=== PATIENT | male | born 1945 | race African-American/Black ===

== ENCOUNTER 2018-06-11 07:28 | Outpatient (CLI) | payer MEDICARE, MEDICAID ==
[~2018-06-11] VITALS: Ht 188 cm; Wt 121.8 kg
--- NOTE | ~2018-06-11 | HEMODYNAMI ---
PATIENT:JOEL SORTO JR MEDICAL RECORD: [id number] : 45 [id number] ADMISSION DATE: 06/11/18 Generatedon:06/11/201811:22 Patient name: JOEL SORTO Patient #: [id number] SSN: : 1945 Date of study: 06/11/2018 Page: Of Hemodynamic Procedure Report Patient Data Patient Demographics Procedure consent was obtained First Name: JOEL Gender: Male Last Name: NOREEN Suffix: Patient #: [id number] : 1945 Age: 73 year(s) Accession #: Race: Black [id number] Additional ID: [id number] Contact details [address]: [address] [place] [address] State: [place] City: [place] Zip code: [address] Past Medical History Allergies: No known allergies Admission Admission Data Admission Date: 06/11/2018 Admission Time: 7:28 Procedure Procedure Types Cath Procedure Peripheral Cath Diagnostic Procedure Venography Procedure Description Procedure Date Procedure Date: 06/11/2018 Procedure Start Time: 10:15 Procedure Staff Name Function Joaquin Kathleen MD Performing Physician Jonny Reyes RT Monitor Merced Averyub Eri Cabrera RN Nurse Procedure Data Cath Procedure Fluoroscopy Diagnostic fluoroscopy Total fluoroscopy Time: 0 time: 0 min min Diagnostic fluoroscopy Total fluoroscopy dose: 287 dose: 287 mGy mGy Contrast Material Contrast Material Type Amount (ml) Isovue 300 65 Procedure Medications Medication Administration Route Dosage Heparin Flush Bag added to field 3 bags (1000units/500ml NS) Lidocaine 1% added to field 20 Versed I.V. 1 mg Fentanyl I.V. 50 mcg Versed I.V. 1 mg Fentanyl I.V. 50 mcg Heparin Bolus I.V. 5000 units Hemodynamics Rest Heart Rate: 77 (bpm) Snapshots Pre Cath Intra NCS Post Cath Vital Signs Time Heart Resp SPO2 etCO2 NIBP (mmHg) Rhythm Pain Sedation Rate (ipm) (%) (mmHg) Status Level (bpm) 9:35:30 77 13 95 37.2 168/92(116) NSR 0 (11) 10(A) , No pain 9:39:56 76 14 96 29 153/80(124) NSR 0 (11) 10(A) , No pain 9:44:18 71 16 94 35.7 143/85(120) NSR 0 (11) 10(A) , No pain 9:49:17 73 20 96 37.2 Measuring NSR 0 (11) 10(A) , No pain 9:49:40 76 18 94 28.3 159/81(104) NSR 0 (11) 10(A) , No pain 9:54:00 71 14 100 33.5 151/81(127) NSR 0 (11) 10(A) , No pain 9:58:20 76 18 98 30 152/86(129) NSR 0 (11) 9(A) , No pain 10:02:40 75 21 97 29.8 159/84(139) NSR 0 (11) 9(A) , No pain 10:07:02 75 15 98 27 161/86(141) NSR 0 (11) 9(A) , No pain 10:11:24 76 16 98 28 145/89(127) NSR 0 (11) 9(A) , No pain 10:15:42 75 14 100 31.3 142/84(120) NSR 0 (11) 8(A) , No pain 10:19:58 80 10 100 32 141/83(127) NSR 0 (11) 8(A) , No pain 10:24:16 75 10 99 23.1 136/77(115) NSR 0 (11) 8(A) , No pain 10:28:33 75 9 99 25.3 126/73(109) NSR 0 (11) 8(A) , No pain 10:32:44 77 14 11.1 127/80(108) NSR 0 (11) 8(A) , No pain 10:37:00 70 16 100 35 121/65(93) NSR 0 (11) 8(A) , No pain 10:41:10 79 15 100 31.3 131/81(112) NSR 0 (11) 8(A) , No pain 10:45:20 78 14 100 30 121/80(105) NSR 0 (11) 8(A) , No pain 10:49:34 74 20 100 30.6 123/68(97) NSR 0 (11) 8(A) , No pain 10:53:42 76 17 100 31.3 128/86(113) NSR 0 (11) 8(A) , No pain 10:57:58 68 17 100 32.1 134/64(88) NSR 0 (11) 8(A) , No pain 11:02:10 74 4 100 35 123/79(103) NSR 0 (11) 8(A) , No pain 11:06:22 74 16 100 32.8 135/75(116) NSR 0 (11) 8(A) , No pain 11:10:36 74 19 100 32.8 136/81(125) NSR 0 (11) 8(A) , No pain 11:14:52 78 16 100 0 129/80(111) NSR 0 (11) 8(A) , No pain 11:19:02 76 15 100 2.9 144/87(123) NSR 0 (11) 8(A) , No pain Medications Time Medication Route Dose Verified Delivered Reason Notes Effe ctiveness by by 10:05:19 Heparin Flush added 3 Joaquin Nuñez used for Bag to bags Frannie Kathleen MD procedure (1000units/500ml field IGLESIAS NS) 10:05:32 Lidocaine 1% added 20ml Joaquin Nuñez for local to vial Frannie Kathleen MD anesthetic field 10:15:07 Versed I.V. 1 mg Joaquin Hwang for Rick Kathleen RN sedation 10:15:21 Fentanyl I.V. 50 Joaquin Hwang for mcg Rick Kathleen RN sedation 10:34:11 Versed I.V. 1 mg Joaquin Hwang for Rick Kathleen RN sedation 10:34:21 Fentanyl I.V. 50 Joaquin Hwang for mcg Rick Kathleen RN sedation 10:35:44 Heparin Bolus I.V. 5000 Joaquin Hwang Per units Rick Kathleen RN physician Procedure Log Time Note 9:15:53 Jonny Reyes RT (R) (CV) sent for patient. Start room use. 9:16:02 Time tracking: Regular hours (M-F 7:00 - 5:00) 9:16:08 Plan of Care:Hemodynamics will remain stable., Cardiac rhythm will remain stable., Comfort level will be maintained., Respiratory function will remain adequate., Patient/ family verbilizes understanding of procedure., Procedure tolerated without complication., Recovers from procedure without complications.. 9:16:23 Patient received from Outpatients to IR Alert and oriented. Tansferred to table in Supine position. 9:16:25 Correct patient and procedure confirmed by team. 9:16:26 Signed procedure consent form obtained from patient. 9:16:27 ECG and BP/O2 sat monitors applied to patient. 9:16:29 Full Disclosure recording started 9:16:30 - 9:16:36 H&P Date Dictated: 06/11/2018 H&P Addendum completed by physician on day of procedure. (MUST COMPLETE FOR ALL OUTPATIENTS). 9:16:36 Pre-procedure instructions explained to patient. 9:16:37 Pre-op teaching completed and patient verbalized understanding. 9:16:38 Family in waiting room. 9:16:41 Patient NPO since Midnight. 9:16:53 Patient allergic to No known allergies 9:16:56 Is the patient allergic to Iodine/contrast media? No. 9:16:58 Is patient on blood thinner?No 9:16:59 Patient diabetic? Yes. 9:17:00 If diabetic: On Metformin? No 9:17:01 - 9:17:02 ----Pre-sedation anethsthesia assessment.---- 9:17:05 Use device set IR Diagnostic 9:17:07 Sterile Angiographic Pack opened to sterile field. 9:17:08 Bag Decanter () opened to sterile field. 9:17:10 Tegaderm 4 x 4 (1626W) opened to sterile field. 9:17:21 Previous problem with sedation/anesthesia? N/A ? 9:17:22 Snore? Yes 9:17:24 Sleep apnea? No 9:17:26 Deviated septum? No 9:17:29 Opens mouth fully? Yes 9:17:30 Sticks out tongue? Yes 9:17:32 Airway obstruction? No ? 9:17:37 Dentures? No ? 9:34:15 Vital chart was started 9:34:16 Baseline sample Acquired. 9:38:24 Baseline sample Acquired. 9:45:45 IV patent on arrival in left forearm with 0.9% NaCl at [facility]. 9:45:46 Sharps counted by scrub and verified by R.N. 9:45:47 Alarms reviewed by R. N. 9:45:53 Right Arm area was prepped with chlora-prep and draped in sterile fashion 9:45:57 Right groin area was prepped with chlora-prep and draped in sterile fashion 10:05:19 Heparin Flush Bag (1000units/500ml NS) 3 bags added to field was administered by Joaquin Kathleen MD; used for procedure; 10:05:32 Lidocaine 1% 20ml vial added to field was administered by Joaquin Kathleen MD; for local anesthetic; 10:12:31 Physician arrived 10:12:32 --------ALL STOP TIME OUT------ 10:12:32 Final Timeout: patient, procedure, and site verified with staff and physician. All members of the team are in agreement. 10:12:35 Right groin site verified by team. 10:12:38 Right Arm site verified by team. 10:12:42 Fire Safety Assessment: A--An alcohol-based skin anteseptic being used preoperatively., C--Open oxygen or nitrous oxide is being used. 10:12:46 Sedation plan: IV Moderate Sedation Medication:Versed, Fentanyl 10:15:05 Procedure started. 10:15:07 Versed 1 mg I.V. was administered by Eri Cabrera RN; for sedation; 10:15:10 Local anesthetic to right arm with Lidocaine 1% by Joaquin Kathleen MD.INITIAL ACCESS ONLY 10:15:15 GLIDE CATHETER 5FR ANGLED 65cm (CG507) opened to sterile field. 10:15:16 DOC .035 wire (U47246) opened to sterile field. 10:15:18 SHEATH 6FR [place] (TSP431) opened to sterile field. 10:15:19 Micropuncture VSI 4FR kit opened to sterile field. 10:15:21 Fentanyl 50 mcg I.V. was administered by Eri Cabrera RN; for sedation ; 10:18:53 GLIDE WIRE .038 180cm ANGLED (DA2758) opened to sterile field. 10:18:56 TORQUE DEVICE PLASTIC .038 ( TD01) opened to sterile field. 10:26:40 GRIFFITHS 260 wire (N15872) opened to sterile field. 10:27:09 INFLATOR BasixTOUCH (WV0367) opened to sterile field. 10:29:35 SHEATH 6FR [place] (RSR01) opened to sterile field. 10:34:11 Versed 1 mg I.V. was administered by Eri Cabrera RN; for sedation; 10:34:21 Fentanyl 50 mcg I.V. was administered by Eri Cabrera RN; for sedation ; 10:35:44 Heparin Bolus 5000 units I.V. was administered by Eri Cabrera RN; Per physician; 10:37:41 Inflate balloon Inflation number: 1 A Evercross 6 x 6 x 135 Balloon ([id number]) was prepped and advanced across the Undefined1, then inflated to 14 DERIK for 0:04 (min:sec). 10:38:30 Inflate balloon Inflation number: 2 A Evercross 8 x 6 x 135 Balloon ([id number]) was prepped and advanced across the Undefined1, then inflated to 14 DERIK for 0:05 (min:sec). 10:43:58 Inflate balloon Inflation number: 3 A Evercross 10 x 60 x 135 Balloon ([id number]) was prepped and advanced across the Undefined1, then inflated to 11 DERIK for 0:06 (min:sec). 10:50:50 Inflate balloon Inflation number: 4 A Evercross 12 x 40 x 135 ([id number]) was prepped and advanced across the Undefined1, then inflated to 10 DERIK for 0:06 (min:sec). 10:52:55 Protege GPS 12 x 60 X 120 Stent ([id number]) was deployed across Undefined1 . 11:06:50 Procedure ended.(Physican Out) 11:07:04 Contrast amount:Isovue 300 65ml. 11:13:58 Fluoroscopy time 00.00 minutes. 11:14:06 Fluoroscopy dose: 287 mGy 11:14:06 Flurop Dose total: 287 11:14:08 Sharps counted by scrub and verified by R.N. 11:19:05 Insertion/operative site no bleeding no hematoma. 11:19:10 Post-op/insertion site Right Fistula dressed using a 4 x 4 and Tegaderm . 11:19:15 Post right arm:stable 11:19:20 Post procedure instruction explained to patient.Patient verbalizes understanding. 11:19:21 Procedure and supply charges have been captured, reviewed, submitted an d are correct. 11:21:31 Report given to Outpatients. 11:21:36 Patient transfered to Outpatients with Stretcher. 11:21:59 Vital chart was stopped Intervention Summary Intervention Notes Time ActionType Lesion and Equipment Used Action# Pressure Duration Attributes 10:37:41 Inflate Undefined1 Evercross 6 x 6 x 1 14 00:04 balloon 135 Balloon ([id number]) 10:38:30 Inflate Undefined1 Evercross 8 x 6 x 2 14 00:05 balloon 135 Balloon ([id number]) 10:43:58 Inflate Undefined1 Evercross 10 x 40 3 11 00:06 balloon x 135 Balloon ([id number]) 10:50:50 Inflate Undefined1 Evercross 12 x 40 4 10 00:06 balloon x 135 ([id number]) 10:52:55 Deploy self Undefined1 Protege GPS 12 x 1 expanding 60 X 120 Stent stent ([id number]) Device Usage Item Name Manufacture Quantity Catalog Number Hospital Part [facility] rent Minimal Lot# / Charge Number Stock Stock Serial# Code Sterile Cardinal 1 [id number] 998 330 5 Angiographic Pack Health Bag Decanter Microtek 1 [id number] 45306 987 534 5 () Medical Inc. Tegaderm 4 x 4 3M 1 [id number] 181080 116585 992 806 5 (1626W) GLIDE CATHETER 5FR Terumo 1 CG507 828575 999 738 5 ANGLED 65cm (CG507) DOC .035 wire [employer] 1 W75008 830343 999 522 5 (Y08584) SHEATH 6FR Terumo 1 WCD662 649098 360383 996 005 40 [place] (NTW868) Micropuncture VSI VSI VASCULAR 1 7266V 401409 999 356 5 4FR kit SOLUTIONS GLIDE WIRE .038 Terumo 1 [id number] 938197 999 979 5 180cm ANGLED (RV7077) TORQUE DEVICE [place] 1 TD01 915228 507763 999 365 5 PLASTIC .038 ( Scientific TD01) GRIFFITHS 260 wire [employer] 1 J12768 859054 19146 999 608 5 ([id number]) INFLATOR Merit 1 LH1986 145821 481092 999 798 5 [employer] (XF8461) SHEATH 6FR Terumo 1 RSR01 022478 70831 999 665 5 Destination (RSR01) Evercross 6 x 6 x Medtronic 1 [id number] 250988 999 994 5 [id number] 135 Balloon ([id number]) Evercross 8 x 6 x Medtronic 1 [id number] 389461 950647 999 992 5 [id number] 135 Balloon ([id number]) Evercross 10 x 40 Medtronic 1 [id number] 767847 432231 999 981 5 x 135 Balloon ([id number]) Evercross 12 x 40 Medtronic 1 [id number] 845663 524709 999 993 5 x 135 ([id number]) Protege GPS 12 x Medtronic 1 [id number] 224745 195423 999 998 5 60 X 120 Stent ([id number]) Signature Audit [place] Stage Time Signature Unsigned Intra-Procedure 06/11/2018 Jonny 11:21:53 AM Gingerield RT (R) (CV) Signatures Monitor : Jonny Signature : [place] RT Date : Time : [facility] [address] [place] [address]
[~2018-06-11 07:28] MED LIST: AMITIZA24 MCG PO; ASPIRIN325 MG PO; COREG25 MG PO; FLEXERIL10 MG PO; GLUCOTROL XL 5 M5 MG PO; K-DUR20 MEQ PO; LANTUS SOL100 UNIT/1; LASIX80 MG PO; MULTI-DAY VITAM1 TAB PO; NEURONTIN 300300 MG PO; NORVASC5 MG PO; NOVOLOG MI100 UNIT/1; PRAVACHOL80 MG PO; TUMS500 MG; ZAROXOLYN5 MG PO; ZYLOPRIM100 MG PO
[2018-06-11 08:00] LABS: ANION GAP 11.1 mmol/L (8-16); CALCIUM 8.3 mg/dL (8.5-10.1); CARBON DIOXIDE 30.2 mmol/L (21.0-32.0); CREATININE - SERUM 6.2 mg/dL (0.6-1.3); POTASSIUM - SERUM 3.3 mmol/L (3.5-5.1)
[2018-06-11 08:19] LABS: HEMATOCRIT 37.5 % (42.0-54.0); HEMOGLOBIN 11.7 g/dL (13.5-17.5); MCH 27.1 pg (26.0-34.0); MCHC 31.2 g/dL (31.0-37.0); RBC 4.31 10x6/uL (4.20-6.10); RDW 18.7 % (11.5-14.5); WBC 7.3 10x3/uL (4.8-10.8)
[2018-06-11 08:20] LABS: PLATELET COUNT 122 10x3/uL (130-400)
[2018-06-11] MEDS ORDERED: LANOXIN125 MCG PO (08:37)
[2018-06-11 08:40] VITALS: BP 148/74; Ht 188 cm; Wt 121.8 kg
[2018-06-11] MEDS ORDERED: COREG 3.1253.125 MG (08:40)
[2018-06-11 09:50] LABS: LYMPHOCYTES 12 % (15-50); MONOCYTES 31 % (2-11); NEUTROPHILS 52 % (40-80); PLATELET ESTIMATE NORMAL
[2018-06-11 09:52] LABS: INR 1.11 (0.85-1.17); PROTIME 13.8 SECONDS (11.6-15.0)
--- NOTE | 2018-06-11 12:52 | NUR ---
VS PER FREQUENT VITAL SHEET.
--- NOTE | 2018-06-11 13:35 | NUR ---
DR IQBAL NOTIFIED BY PHONE OF PATIENT'S BP OF 183/68. PATIENT DOES NOT KNOW IF HE TOOK HIS MEDICINE THIS MORNING OR NOT. DR IQBAL STATES PATIENT MAY STILL BE DISCHARGED, TELL PATIENT TO TAKE HEART/BP MEDS WHEN HE GETS HOME
[2018-06-11] MEDS ORDERED: PLAVIX75 MG PO (13:53)
--- NOTE | 2018-06-11 14:10 | NUR ---
DISCHARGE INSTRUCTIONS REVIEWED WITH PATIENT AND DAUGHTER, DISCHARGED HOME VIA WHEELCHAIR TO PRIVATE VEHICLE WITH DAUGHTER
== END 2018-06-11 14:10 | disposition home or self-care (01) ==
LOC: D.SP 07:28 → D.RAD 09:30 → D.SP 09:30
PROVIDERS: General Practice; ATTEND Internal Medicine Nephrology
DX: T82.868A Thrombosis due to vascular prosthetic devices, implants and grafts, initial encounter (principal); Z01.812 Encounter for preprocedural laboratory examination